=== PATIENT | male | born 1975 | race Caucasian/White ===

== ENCOUNTER 2018-04-23 15:46 | Emergency (ER) | payer SELFPAY ==
[2018-04-23 16:04] VITALS: BMI 35.5
--- NOTE | 2018-04-23 16:54 | PDOC ---
History of Present Illness - General Chief Complaint: Lightheaded Stated Complaint: DISSY/HEADACHE/SORE THROAT Time Seen by Provider: 04/23/18 16:24 History Source: Patient Exam Limitations: No Limitations - History of Present Illness Initial Comments: 04/23/18 16:44 Pt is a 42yo m with no significant PMH presenting to ED with complains of dizziness which started at 2pm today. Pt said he was sitting down and eating when he had this sudden onset of dizziness which he describes as wanting to put his head down. He thinks it may be due to the neck pain he has been having for the last 1-1.5 weeks which progressed to a headache today. He also admits to sore throat. He denies fevers/chills, recent illnesses, other joint pains, changes in vision or hearing, injuries, sick contacts, n/v/d, photophobia, abdominal pains. He has tried taking Aleeve for the pain and it helps a little. Neck pain is 8/10 not aggrevated by anything, alleviated with Aleeve. PCP: none PMH: none PSH: eye surgery Meds: none Social: occasional alcohol use. Past History - Past Medical History Allergies/Adverse Reactions: Allergies Allergy/AdvReac Type Severity Reaction Status Date / Time No Known Allergies Allergy Verified 04/23/18 15:55 Home Medications: Ambulatory Orders Naproxen Sodium [Aleve] 220 mg PO BID PRN 04/23/18 COPD: No - Suicide/Smoking/Psychosocial Hx Smoking History: Never smoked Review of Systems - Review of Systems Constitutional: Yes: See HPI. No: Chills, Fever, Weakness HEENTM: Yes: Throat Pain. No: Recent change in vision, Nose Congestion, Throat Swelling Respiratory: No: Cough, Shortness of Breath, Hemoptysis Cardiac (ROS): No: Chest Pain, Lightheadedness, Palpitations, Syncope ABD/GI: No: Constipated, Diarrhea, Nausea, Rectal Bleeding, Vomiting, Abdominal cramping, Tarry Stools : No: Burning, Dysuria, Frequency, Flank Pain, Hematuria Musculoskeletal: Yes: Neck Pain. No: Back Pain, Muscle Pain, Muscle Weakness, Joint Stiffness Neurological: Yes: Headache. No: Numbness, Tingling, Tremors, Weakness *Physical Exam - Vital Signs Last Vital Signs Temp Pulse Resp BP Pulse Ox 98.6 F 69 18 161/97 98 04/23/18 15:49 04/23/18 15:49 04/23/18 15:49 04/23/18 15:49 04/23/18 15:49 - Physical Exam General Appearance: Yes: Nourished, Appropriately Dressed. No: Apparent Distress HEENT: positive: EOMI, CASTRO, Pharynx Normal. negative: Pharyngeal Erythema, Tonsillar Exudate, Tonsillar Erythema Neck: positive: Trachea midline, Supple. negative: Carotid bruit, Lymphadenopathy (R), Lymphadenopathy (L) Respiratory/Chest: positive: Lungs Clear, Normal Breath Sounds. negative: Crackles, Rales, Rhonchi, Stridor Cardiovascular: positive: Regular Rhythm, Regular Rate, S1, S2. negative: Edema , JVD, Murmur Vascular Pulses: Carotid (R): 2+, Carotid (L): 2+, Dorsalis-Pedis (R): 2+, Doralis-Pedis (L): 2+ Gastrointestinal/Abdominal: positive: Normal Bowel Sounds, Soft. negative: Guarding, Rebound, Tenderness Musculoskeletal: positive: Vertebral Tenderness (along cervical spine around C7- 8). negative: CVA Tenderness Extremity: positive: Normal Capillary Refill. negative: Pedal Edema, Swelling, Calf Tenderness Integumentary: positive: Normal Color, Dry, Warm Neurologic: positive: crusher foreman II-XII NML intact, Fully Oriented, Alert, Normal Mood/ Affect, Normal Response, Motor Strength 5/5 ED Treatment Course - LABORATORY CBC & Chemistry Diagram: 04/23/18 18:15 04/23/18 18:15 Medical Decision Making - Medical Decision Making Pt is a 42yo m with no significant PMH presenting to ED with complains of dizziness which started at 2pm today. + neck pain. Vitals: wnl, slightly hypertensive PE: benign DDx: dissection, sprain. No trauma or injury. low suspicion for fracture. Pt does not have PCP. Will order cardiac workup and CTA. EKG: nsr Labs: wnl 04/23/18 19:49 Awaiting CTA CTA negative for dissectin. Pt reported some relief after Tylenol. Pt hemodynamically stable, no acute process going on. Can be dc home. Pt given advice for pain control, given referral to neuro as well as pcp. Pt agreed to plan. *DC/Admit/Observation/Transfer Diagnosis at time of Disposition: Neck pain - Discharge Dispostion Disposition: HOME Condition at time of disposition: Good Decision to Admit order: No - Referrals - Patient Instructions Printed Discharge Instructions: DI for Neck Pain Additional Instructions: You were seen here today for evaluation of neck pain. All of your tests were normal. The exact cause of your pain is unknown, it could be musculoskeletal in origin. You can take up to 800mg of ibuprofen three times a day as needed for pain. I highly recommend you see a primary care doctor for further management of your health. Your blood pressure is high, a primary care doctor can help you control this. You can also follow up with a neurologist for neck pain. Dr. Chou . Come back to the emergency room if: your pain gets worse, you feel more dizzy, you have chest pain, you feel short of breath, you cannot move your neck or if any new concerning symptom develops. Thank you - Post Discharge Activity
[2018-04-23] MEDS ORDERED: ACETAMINOPHEN 500 MG TABLET (FP) PO ONE (16:58)
--- NOTE | 2018-04-23 17:12 | PDOC ---
Attending Attestation - HPI HPI: 04/23/18 17:32 The patient is a 42 year old male, with no significant past medical history, who presents to the emergency department with sudden onset of dizziness at 2PM this afternoon. He states he has been experiencing neck pain for about 1- 2.5 weeks which has progressed to a headache this week. He states that at 2PM he felt a sudden need to put his head down. He denies room spinning sensation. He denies feeling as if he will pass out. The patient denies chest pain, shortness of breath. The patient denies fever, chills, nausea, vomit, diarrhea and constipation. The patient denies dysuria, frequency, urgency and hematuria. Allergies: NKDA - Medical Decision Making 04/23/18 17:33 Documentation prepared by Johana Morel, acting as medical practice assistant for Adelaide Dent MD <Johana Morel - Last Filed: 04/23/18 17:38> - Resident Resident Name: Jennifer Arndt - ED Attending Attestation I have performed the following: I have examined & evaluated the patient, The case was reviewed & discussed with the resident, I agree w/resident's findings & plan, Exceptions are as noted - Physicial Exam PE: GENERAL: Awake, alert, and fully oriented, in no acute distress HEAD: No signs of trauma EYES: PERRLA, EOMI, sclera anicteric, conjunctiva clear ENT: Auricles normal inspection, hearing grossly normal, nares patent, oropharynx clear without exudates. Moist mucosa NECK: Normal ROM, supple, no lymphadenopathy, JVD, or masses. Patient indicates the area overlying C7 as location of pain, but states that it is not tender to palpation. LUNGS: Breath sounds equal, clear to auscultation bilaterally. No wheezes, and no crackles HEART: Regular rate and rhythm, normal S1 and S2, no murmurs, rubs or gallops ABDOMEN: Soft, nontender, normoactive bowel sounds. No guarding, no rebound. No masses EXTREMITIES: Normal range of motion, no edema. No clubbing or cyanosis. No cords, erythema, or tenderness NEUROLOGICAL: Cranial nerves II through XII grossly intact. Normal speech, normal gait. Motor and sensation intact. SKIN: Warm, Dry, normal turgor, no rashes or lesions noted. - Medical Decision Making Pt with dizziness, neck pain, elevated BP. Will obtain labs to r/o ACS, will also obtain CTA to r/o vertebrobasilar dissection. <Adelaide Dent - Last Filed: 04/23/18 17:52>
[2018-04-23] MEDS ORDERED: ACETAMINOPHEN 325 MG TABLET (FP) ONE (17:18)
[2018-04-23 18:24] LABS: BASO % 0.5 % (0-2.0); EOS % 2.1 % (0-4.5); HEMATOCRIT 46.5 % (35.4-49); HEMOGLOBIN 15.7 GM/dL (11.7-16.9); LYMPH % 26.4 % (8-40); MCH 30.4 pg (25.7-33.7); MCHC 33.7 g/dl (32.0-35.9); MEAN CELL VOLUME 90.2 fl (80-96); MEAN PLT VOLUME 9.8 fl (7.5-11.1); MONO % 7.7 % (3.8-10.2); NEUT % 63.3 % (42.8-82.8); PLATELET COUNT 211 K/MM3 (134-434); RBC 5.16 M/mm3 (4.00-5.60); RDW 13.7 % (11.9-15.9)
[2018-04-23 18:48] LABS: ALBUMIN 3.9 g/dl (3.4-5.0); ALK PHOS 110 U/L (45-117); ANION GAP 3 MMOL/L (8-16); BILIRUBIN,TOTAL 0.6 mg/dL (0.2-1); BLOOD UREA NITROGEN 15 mg/dL (7-18); CALCIUM 9.2 mg/dL (8.5-10.1); CHLORIDE 105 mmol/L (98-107); CO2 28 mmol/L (21-32); CREATININE 0.7 mg/dL (0.55-1.3); GLUCOSE,RANDOM 77 mg/dL (74-106); SGOT/AST 15 U/L (15-37); SGPT/ALT 44 U/L (13-61); SODIUM 137 mmol/L (136-145); TOT PROT 8.1 g/dl (6.4-8.2)
[2018-04-23 22:03] VITALS: BP 136/94; PULSE 71; TEMP 98.2
--- NOTE | 2018-04-24 10:35 | EKG ---
Test Reason : Blood Pressure : / mmHG Vent. Rate : 064 BPM Atrial Rate : 064 BPM P-R Int : 142 ms QRS Dur : 096 ms QT Int : 392 ms P-R-T Axes : 039 013 019 degrees QTc Int : 404 ms NORMAL SINUS RHYTHM NORMAL ECG NO PREVIOUS ECGS AVAILABLE Confirmed by BENITA HENRIQUEZ MD ([id number]) on 04/24/2018 10:35:38 AM Referred By: Confirmed By:BENITA HENRIQUEZ MD
== END 2018-04-23 22:03 | disposition home or self-care (01) ==
LOC: JER 15:46
DX: M54.2 Cervicalgia (principal); I10 Essential (primary) hypertension
CPT/HCPCS: 36415; 70498-TC; 71045-TC-FY; 80053; 84484; 85025; 93005; 93010; 99284-25

== ENCOUNTER 2018-09-25 19:27 | Emergency (ER) | payer SELFPAY ==
--- NOTE | 2018-09-25 19:33 | PDOC ---
Rapid Medical Evaluation Time Seen by Provider: 09/25/18 19:31 Medical Evaluation: Allergies Allergy/AdvReac Type Severity Reaction Status Date / Time No Known Allergies Allergy Verified 04/23/18 15:55 09/25/18 19:31 I have performed a brief in-person evaluation of this patient. The patient presents with chief complaint of coughing x 2 weeks. Reports chest pain, subjective fever and shortness of breath. Took otc medication with no relief of symptoms Cough producing greenish phlegm. Pertinent physical exam findings NAD clear lungs bilaterally heart s1s2, non tender chest I have ordered the following ekg, chest xray The patient will proceed to the Ed for further evaluation Discharge Disposition - Diagnosis Cough - Referrals Referrals: Nick Hagan MD [Primary Care Provider] - - Patient Instructions - Post Discharge Activity
[2018-09-25 19:34] VITALS: BP 127/94; PULSE 80; TEMP 98.6; BMI 37.1
--- NOTE | 2018-09-25 21:47 | PDOC ---
History of Present Illness - General Chief Complaint: Chest Pain Stated Complaint: COLD SYMPTOMS,PAIN Time Seen by Provider: 09/25/18 19:31 History Source: Patient Exam Limitations: No Limitations - History of Present Illness Initial Comments: 09/25/18 21:42 Patient is 42F with no significant medical history here today complaining of cough for the past two weeks. Endorses subjective fevers and an associated burning sensation in his chest when he coughs. Denies sick contacts and denies getting flu shot. Denies leg swelling, shortness of breath, abdominal pain, headache. Taking 500mg keflex in blister pack from [facility]. Past History - Past Medical History Allergies/Adverse Reactions: Allergies Allergy/AdvReac Type Severity Reaction Status Date / Time No Known Allergies Allergy Verified 04/23/18 15:55 Home Medications: Ambulatory Orders Naproxen Sodium [Aleve] 220 mg PO BID PRN 04/23/18 COPD: No - Suicide/Smoking/Psychosocial Hx Smoking History: Never smoked Review of Systems - Review of Systems Able to Perform ROS?: Yes Comments:: 09/25/18 21:47 GENERAL/CONSTITUTIONAL: No fever or chills. No weakness. HEAD, EYES, EARS, NOSE AND THROAT: No change in vision. No ear pain or discharge. No sore throat. CARDIOVASCULAR: No chest pain or shortness of breath RESPIRATORY: No cough, wheezing, or hemoptysis. GASTROINTESTINAL: No nausea, vomiting, diarrhea or constipation. GENITOURINARY: No dysuria, frequency, or change in urination. MUSCULOSKELETAL: No joint or muscle swelling or pain. No neck or back pain. SKIN: No rash NEUROLOGIC: No headache, vertigo, loss of consciousness, or change in strength/ sensation. ALLERGIC/IMMUNOLOGIC: No hives or skin allergy. *Physical Exam - Vital Signs Last Vital Signs Temp Pulse Resp BP Pulse Ox 98.6 F 80 18 127/94 99 09/25/18 19:32 09/25/18 19:32 09/25/18 19:32 09/25/18 19:32 09/25/18 19:32 - Physical Exam Comments: 09/25/18 21:50 GENERAL: Awake, alert, and fully oriented, in no acute distress HEAD: No signs of trauma, normocephalic, atraumatic EYES: PERRLA, EOMI, sclera anicteric, conjunctiva clear ENT: Auricles normal inspection, hearing grossly normal, nares patent, oropharynx shows posterior erythema without exudates. Moist mucosa NECK: Normal ROM, supple, no lymphadenopathy, JVD, or masses LUNGS: No distress, speaks full sentences, clear to auscultation bilaterally HEART: Regular rate and rhythm, normal S1 and S2, no murmurs, rubs or gallops, peripheral pulses normal and equal bilaterally. EXTREMITIES: Normal inspection, Normal range of motion, no edema. No clubbing or cyanosis. NEUROLOGICAL: Cranial nerves II through XII grossly intact. Normal speech, normal gait, no focal sensorimotor deficits SKIN: Warm, Dry, normal turgor, no rashes or lesions noted. Moderate Sedation - Procedure Monitoring Vital Signs: Procedure Monitoring Vital Signs Temperature 98.6 F 09/25/18 19:32 Pulse Rate 80 09/25/18 19:32 Respiratory Rate 18 09/25/18 19:32 Blood Pressure 127/94 09/25/18 19:32 O2 Sat by Pulse Oximetry (%) 99 09/25/18 19:32 Medical Decision Making - Medical Decision Making 09/25/18 21:50 Patient is 42M here today with cough. Vitals normal and stable. Believe patient has URI, already taking keflex 500mg BID. CXR shows no infiltrate, no other acute changes. EKG shows NSR with rate of 71. No st elevations/depressions, normal axis, normal intervals. No significant t wave abnormalities. Do not suspect ACS, PE. Patient has URI. Already on appropriate treatment if patient had bacterial pneumonia. Will discharge with instructions to followup with PCP. *DC/Admit/Observation/Transfer Diagnosis at time of Disposition: Cough, URI (upper respiratory infection) - Discharge Dispostion Condition at time of disposition: Good Decision to Admit order: No - Referrals Referrals: Nick Hagan MD [Primary Care Provider] - [facility] [place] [facility] [place] [Provider Group] - Patient Instructions Printed Discharge Instructions: DI for Cough -- Adult Additional Instructions: Please follow up with a primary care provider this week. Please return if you have any new, worsening or concerning symptoms, especially chest pain and shortness of breath. Please take tylenol or motrin for fever. - Post Discharge Activity
--- NOTE | 2018-09-25 22:09 | PDOC ---
Attending Attestation - HPI HPI: 09/25/18 22:09 The patient is a 42 year old male, with no significant past medical history of who presents to the emergency department with 2 weeks of cough. The patient notes her symptoms are associated with SOB and subjective fever, secondary to his cough. Patient notes he endorses a burning sensation when he coughs. Patient notes he is taking a 5 day course of keflex (500mg) which he got in the [place]. The patient denies sick contact. The patient denies blood clots. The patient denies chest pain, headache or dizziness. The patient denies chills, nausea, vomit, diarrhea or constipation. The patient denies dysuria, frequency, urgency or hematuria. Allergies: codeine Past surgical history: inguinal hernias Social history: None reported PCP: Nick Wu - Physicial Exam PE: 09/25/18 22:10 GENERAL: Awake, alert, and fully oriented, in no acute distress HEAD: No signs of trauma EYES: PERRLA, EOMI, sclera anicteric, conjunctiva clear ENT: Auricles normal inspection, hearing grossly normal, nares patent, oropharynx clear without exudates. Moist mucosa NECK: Normal ROM, supple, no lymphadenopathy, JVD, or masses LUNGS: Breath sounds equal, clear to auscultation bilaterally. No wheezes, and no crackles HEART: Regular rate and rhythm, normal S1 and S2, no murmurs, rubs or gallops ABDOMEN: Soft, nontender, normoactive bowel sounds. No guarding, no rebound. No masses EXTREMITIES: (+) mild erythema. Normal range of motion, no edema. No clubbing or cyanosis. No cords, or tenderness NEUROLOGICAL: Cranial nerves II through XII grossly intact. Normal speech, normal gait SKIN: Warm, Dry, normal turgor, no rashes or lesions noted. <Angelia Whitley - Last Filed: 09/25/18 22:09> - Resident Resident Name: Amilcar Castro - ED Attending Attestation I have performed the following: I have examined & evaluated the patient, The case was reviewed & discussed with the resident, I agree w/resident's findings & plan, Exceptions are as noted - HPI HPI: 09/25/18 22:07 42 yo male p/w persisitent cough for 2 weeks he stats he feels feverish and had chills he had been taking keflex 500mg BID since last week. These pills he has from the DR - Medical Decision Making 09/25/18 22:13 42 yo male p/w persistent dry cough head ncat neck supple lungs cta b/l cvs [id number] abd nontender ext no edema skin warm and dry no cva tenderness neuro axox3,no gross focal neuro deficits psych appropriate 09/25/18 22:2 cxr napd pulse >95% no evidence of [place] pt was given an appt with the internal medicine group at [facility] pt to finish his antibiotics and follow up with our IM group <Ela Fitzgerald - Last Filed: 09/25/18 22:23> Attestations - Attestations 09/25/18 22:11 Documentation prepared by Angelia Whitley, acting as medical education coordinator for Ela Fitzgerald MD <Angelia Whitley - Last Filed: 09/25/18 22:09>
--- NOTE | 2018-09-26 10:42 | EKG ---
Test Reason : Blood Pressure : / mmHG Vent. Rate : 071 BPM Atrial Rate : 071 BPM P-R Int : 146 ms QRS Dur : 102 ms QT Int : 394 ms P-R-T Axes : 059 030 037 degrees QTc Int : 428 ms NORMAL SINUS RHYTHM NORMAL ECG WHEN COMPARED WITH ECG OF 23-APR-2018 18:05, NO SIGNIFICANT CHANGE WAS FOUND Confirmed by Hero Decker MD ([id number]) on 09/26/2018 10:42:19 AM Referred By: Confirmed By:Hero Decker MD
== END 2018-09-25 22:04 | disposition home or self-care (01) ==
LOC: JER 19:27
DX: J06.9 Acute upper respiratory infection, unspecified (principal)
CPT/HCPCS: 71046-TC-FY; 93005; 93010; 99281-25